=== PATIENT | female | born 1940 | race Caucasian/White ===

== ENCOUNTER → 2019-05-29 14:04 | Outpatient (CLI) | payer MEDICARE, OTHER, MEDICAID, SELFPAY ==
[2019-05-29 16:04] LABS: Anion Gap 8 (5-15); BUN 24 mg/dL (7-18); BUN/Creat Ratio 26.5 RATIO (10-20); Calcium,Total 9.3 mg/dL (8.5-10.1); Chloride 105 mmol/L (98-107); Creatinine, Serum 0.91 mg/dL (0.55-1.02); EST Glomerular Filtration Rate 64 mL/min (>60); Est Glom Filt Rate - Afr Amer 77 mL/min (>60); Glucose 159 mg/dL (74-106); Magnesium 1.9 mg/dL (1.6-2.6); Potassium 4.2 mmol/L (3.5-5.1); Sodium Level 143 mmol/L (136-145); T4 Total, Thyroxin 16.5 ug/dL (4.8-13.9)
== END ==
PROVIDERS: Family Provider Family Medicine; PCP Family Medicine; Referring Provider Internal Medicine Gastroenterology; Visit Provider Internal Medicine Gastroenterology
DX: K59.00 Constipation, unspecified (principal); R14.0 Abdominal distension (gaseous)
CPT/HCPCS: 36415; 80048; 83735; 84436; 84443

== ENCOUNTER 2022-11-13 18:29 | Emergency (ER) | payer MEDICARE, OTHER, MEDICAID, SELFPAY ==
[2022-11-13 18:34] VITALS: BP 157/85; PULSE 60; RESP 16; TEMP 36.8; O2SAT 97; BMI 33.8
--- NOTE | 2022-11-13 18:37 | EX.ED.DYSGE1 ---
HPI History of Present Illness Chief Complaint: Abd Pain Narrative Narrative: 82-year-old female here with abdominal pain. Patient states she has upper abdominal pain that she describes as feeling like bubbles. She notes this resolved in route. The patient further states she had 3 to 4 days of epigastric abdominal pain that was nonradiating. Pain is not ripping or tearing. She endorses no chest pain or shortness of breath associated. Denies any nausea or vomiting. States she has history abdominal surgeries. Notes no melena, hematochezia, constipation or diarrhea. Does note increased frequency of urination but denies any lower abdominal pain. [facility] Medical History (Updated 11/13/22 @ 21:[address] Abhi Edwards, ) Alzheimer's dementia Asthma CHF (congestive heart failure) Depressive disorder Diabetes Hyperlipemia Hypertension Hypothyroidism ADALBERTO (obstructive sleep apnea) Osteoarthritis Osteoporosis Home Medications alendronate 70 mg tablet (Fosamax) 70 mg PO QWEEK 11/13/22 [History Last Taken Unknown] carvedilol 12.5 mg tablet 12.5 mg PO QHS 11/13/22 [History Last Taken Unknown] carvedilol 6.25 mg tablet 6.25 mg PO DAILY 11/13/22 [History Last Taken Unknown] celecoxib 200 mg capsule (Celebrex) 200 mg PO BID 11/13/22 [History Last Taken Unknown] cyclosporine 0.05 % eye drops in a dropperette (Restasis) 1 drp EACH EYE Q12H 11/13/22 [History Last Taken Unknown] desloratadine 5 mg tablet 5 mg PO DAILY 11/13/22 [History Last Taken Unknown] docusate sodium 100 mg capsule (Colace) 100 mg PO QHS 11/13/22 [History Last Taken Unknown] donepezil 10 mg tablet 10 mg PO QHS 11/13/22 [History Last Taken Unknown] fluoxetine 20 mg capsule 20 mg PO DAILY 11/13/22 [History Last Taken Unknown] fluticasone propionate 50 mcg/actuation nasal spray,suspension 1 spray intranasal BID 11/13/22 [History Last Taken Unknown] levothyroxine 75 mcg tablet 75 mcg PO DAILY 11/13/22 [History Last Taken Unknown] melatonin 3 mg tablet 3 mg PO QHS 11/13/22 [History Last Taken Unknown] memantine 5 mg tablet 10 mg PO BID 11/13/22 [History Last Taken Unknown] pravastatin 10 mg tablet 10 mg PO QHS 11/13/22 [History Last Taken Unknown] Allergy/AdvReac Type Severity Reaction Status Date / Time No Known Allergies Allergy Verified 11/13/22 19:38 Surgical History (Updated 11/13/22 @ 18:43 by Tammy Mixon) History of hysterectomy Social History Smoking Status: Unknown if ever smoked ROS ROS ED ROS Narrative Constitutional: Denies fever HEENT: Denies sore throat Neck: Denies neck pain Cardiovascular: Denies chest pain, syncope Respiratory: Denies shortness of breath GI: Endorses abdominal pain : Denies changes in urinary habits Musculoskeletal: Denies muscle or joint pain Neurologic: Denies numbness weakness or loss of sensation Skin denies rash EXAM Physical Exam Narrative Exam Narrative: Nursing triage notes reviewed, Vital signs reviewed Constitutional: please see mdm HENT: MMM Eyes: Pupils equal round and reactive to light, Extraocular muscles intact Neck: No stridor, no JVD, full neck ROM Lungs: Clear to auscultation, No wheezing or rales. No increased work of breathing, no conversational dyspnea, no accessory muscle use, no nasal flaring. No respiratory distress noted Heart: Regular rate and rhythm, No murmurs, No rubs and No gallops, 2+ distal pulses (radial, femoral, posterior tibial) in all extremities Abdomen: Soft, there is no tenderness, rigidity, rebound or guarding, no obvious peritoneal signs, no palpable pulsatile abdominal masses, no auscultated abdominal bruit : No CVAT Extremities: No edema Neuro: No focal neurological deficits, cranial nerves II through XII intact, 5/5 strength in all extremities. Intact sensation to light touch in all extremities, 2+ reflexes bilateral patella dens. Normal gait. No ataxia. Skin: No rash or lesions noted Const Vital Signs: 11/13/22 18:34 11/13/22 20:00 Temperature 98.3 F Temperature Source Oral Pulse Rate 60 84 Respiratory Rate 16 17 Blood Pressure 157/85 H 184/93 H Blood Pressure Mean 109 123 Pulse Ox 97 95 Oxygen Delivery Method Room Air Room Air [facility] MDM Narrative Medical decision making narrative: Chief Complaint: Upper abdominal pain External records reviewed: No recent [place] imaging of the abdomen or pelvis noted in the chart I considered the following differential diagnosis: ACS, pancreatitis, hepato-biliary pathology, intra-abdominal pathology such as perforation or obstruction, gastritis, peptic ulcer disease. Patient was hemodynamically stable, afebrile, nontoxic-appearing. Abdominal exam was benign axis with acute surgical process however the patient advanced age report of epigastric abdominal pain I did obtain a CT scan rule out perforation or obstruction or other acute surgical process. Labs were remarkable for no evidence of leukocytosis, lactate was negative making mesenteric ischemia less likely. Patient no evidence of myocardial ischemia with no EKG changes or elevation in troponin. No evidence of UTI. There is no evidence of pedal biliary pathology. CT scan showed no evidence of acute intra-abdominal pathology. CT scan showed evidence of gastritis. Recommend the patient's start an [id number] PPI such as Protonix or Nexium. I gave her instructions to follow-up with GI doctor Factors affecting care: History of hypertension, hypothyroidism, hyperlipidemia Social determinants of health: Poor health literacy History obtained from others: The patient's son Shared decision making: I will have a discussion with the patient and or visitors regarding risk/benefits of further testing or admission. They will be made aware of of the risk/benefits inherent in this decision they will be given the opportunity to voice understanding. Consults: None History & Record Review Discussion w/independent historian: Family Additional record(s) reviewed:: Prior outpatient record Lab Data Attestation: I reviewed the patient's lab results. Lab results narrative: EKG with sinus bradycardia (prescribed by), normal axis, no STEMI, CBC with no leukocytosis, mild anemia, no thrombocytopenia BMP without evidence of significant electrolyte abnormalities, no anion gap, no acute kidney injury. Lactate is wnl indicating no end-organ hypoperfusion and/or hypoxia. LFTs show no evidence of hepatobiliary pathology. UA without evidence of infection Labs: Laboratory Results - last 24 hr 11/13/22 11/13/22 11/13/22 19:30 19:30 19:30 WBC 7.1 RBC 3.85 L Hgb 11.9 L Hct 38.0 MCV 98.7 MCH 30.9 MCHC 31.3 L RDW Std Deviation 45.0 H RDW Coeff of Eric 12.3 Plt Count 153 MPV 8.7 Immature Gran % (Auto) 0.400 Neut % (Auto) 54.9 Lymph % (Auto) 30.6 [place] % (Auto) 10.9 H Eos % (Auto) 2.5 Baso % (Auto) 0.7 Absolute Neuts (auto) 3.9 Absolute Lymphs (auto) 2.17 Nucleated RBC % 0 Sodium 140 Potassium 4.0 Chloride 108 H Carbon Dioxide 32.0 Anion Gap 0 L BUN 28 H Creatinine 0.96 Estim Creat Clear Calc 43.94 Est GFR (MDRD) Af Amer 72 Est GFR (MDRD) Non-Af 59 L BUN/Creatinine Ratio 29.3 H Glucose 124 H Lactic Acid 0.7 Calcium 9.3 Total Bilirubin 0.30 Direct Bilirubin 0.17 AST 17 ALT 15 Alkaline Phosphatase 63 Troponin I High Sens 8 Total Protein 6.5 Albumin 3.1 L Globulin 3.4 Lipase 16 Urine Color Urine Clarity Urine pH Ur Specific [place] Urine Protein Urine Glucose (UA) Urine Ketones Urine Occult Blood Urine Nitrite Urine Bilirubin Urine Urobilinogen Ur Leukocyte Esterase 11/13/22 19:40 WBC RBC Hgb Hct MCV MCH MCHC RDW Std Deviation RDW Coeff of Eric Plt Count MPV Immature Gran % (Auto) Neut % (Auto) Lymph % (Auto) [place] % (Auto) Eos % (Auto) Baso % (Auto) Absolute Neuts (auto) Absolute Lymphs (auto) Nucleated RBC % Sodium Potassium Chloride Carbon Dioxide Anion Gap BUN Creatinine Estim Creat Clear Calc Est GFR (MDRD) Af Amer Est GFR (MDRD) Non-Af BUN/Creatinine Ratio Glucose Lactic Acid Calcium Total Bilirubin Direct Bilirubin AST ALT Alkaline Phosphatase Troponin I High Sens Total Protein Albumin Globulin Lipase Urine Color Yellow Urine Clarity Sl. Cloudy Urine pH 6.0 Ur Specific [place] 1.020 Urine Protein Negative Urine Glucose (UA) Normal Urine Ketones Negative Urine Occult Blood 10 H Urine Nitrite Negative Urine Bilirubin Negative Urine Urobilinogen 4 H Ur Leukocyte Esterase 25 H Radiography Chest X-Ray - ED: Read by ED Physician Diagnostic Testing: Clinical Impression(s) from Imaging Studies Abdomen/Pelvis CT 11/13/22 19:15 IMPRESSION: (NOT LISTED IN ORDER OF SIGNIFICANCE) Gastritis. Other findings as above. Electronically Signed: Eliezer Banerjee MD at 20:51 EDT , Chest X-Ray 11/13/22 20:05 IMPRESSION: There are no acute findings. Electronically Signed: Eliezer Banerjee MD at 20:23 EDT , I have personally reviewed the patient's chest x-ray. Chest x-ray is unremarkable for pulmonary edema, pneumothorax, pneumonia or focal cardiopulmonary abnormality. Treatment and Re-Evaluation :: Repeat abdominal exam is benign per the patient appropriate discharge home Discharge Plan Triage Chief Complaint: Abd Pain ED Provider: Abhi Edwards Dx/Rx/DC Orders Clinical Impression: Abdominal pain, acute, epigastric Instructions: ED Gastritis (Adult) Prescriptions: No Action celecoxib [Celebrex] 200 mg Capsule 200 mg PO BID carvedilol 6.25 mg Tablet 6.25 mg PO DAILY Rx Instructions: must administer with a meal/food carvedilol 12.5 mg Tablet 12.5 mg PO QHS Rx Instructions: must administer with a meal/food donepezil 10 mg Tablet 10 mg PO QHS alendronate [Fosamax] 70 mg Tablet 70 mg PO QWEEK melatonin 3 mg Tablet 3 mg PO QHS levothyroxine 75 mcg Tablet 75 mcg PO DAILY pravastatin 10 mg Tablet 10 mg PO QHS desloratadine 5 mg Tablet 5 mg PO DAILY docusate sodium [Colace] 100 mg Capsule 100 mg PO QHS fluoxetine 20 mg Capsule 20 mg PO DAILY fluticasone propionate 50 mcg/actuation [place],Suspension 1 spray INTRANASAL BID Rx Instructions: administer into each nostril cyclosporine [Restasis] 0.05 % Dropperette 1 drp EACH EYE Q12H memantine 5 mg Tablet 10 mg PO BID Primary Care Provider: Francis Ventura Referrals: Friend,Jonathan, DO [Med Staff - Active Staff] - NOT,DEFINED [Non-Staff] - Activity Restrictions/Additional Instructions: Thank you for trusting us with your care today! Please take Tylenol (2 pills, 650 mg), every 6 hours as needed for pain and fever control. Please go to local pharmacy or drugstore and obtain Nexium or Protonix. These medicines control as per Dr. Laguerre and can help improve symptoms from gastritis. Please follow-up with a local GI doctor at the next available appointment. Please return to the emergency department if your symptoms change or worsen. Please follow with your primary care physician for further outpatient evaluation and management. Disposition Disposition: Home, Self Care
--- NOTE | 2022-11-13 19:15 | EKG12_ITS ---
Test Reason : ABD. PAIN Blood Pressure : / mmHG Vent. Rate : 052 BPM Atrial Rate : 052 BPM P-R Int : 288 ms QRS Dur : 086 ms QT Int : 430 ms P-R-T Axes : 082 053 067 degrees QTc Int : 399 ms Sinus bradycardia with 1st degree A-V block with Premature atrial complexes with Aberrant conduction Otherwise normal ECG Confirmed by DENNIS TORRES ([id number]), video effects editor KASIA FERNÁNDEZ ([id number]) on 11/16/2022 1:14:20 PM Referred By: IRENE Confirmed By:DENNIS TORRES
--- NOTE | 2022-11-13 19:15 | CT_ITS ---
STUDY: CT Abdomen And Pelvis W/ Contrast Injection 11/13/2022 8:48 PM REASON FOR EXAM: Female, 82 years old. Abdominal pain Epigastric abdominal pain Individualized dose optimization techniques were used for this CT. COMPARISON: None. TECHNIQUE: CT Abdomen And Pelvis W/ Contrast Injection IV 100mL [id number] FINDINGS: There are atherosclerotic calcifications of visualized coronary arteries. The visualized portions of the heart are within normal limits. Normal liver. Normal gallbladder and extrahepatic biliary system. There are multiple benign calcified granulomata of the spleen. Normal pancreas. Normal bilateral adrenal glands. No acute findings of the right kidney. No acute findings of the left kidney. Focal wall thickening of the antrum of stomach. This can suggest a gastritis. Normal small intestine. Stool throughout the colon. There is non-visualization of the appendix. There are calcifications of the abdominal aorta. This is consistent for atherosclerotic disease. There is NO abdominal aortic aneurysm. Vascular workup can be obtained based on clinical correlation. Normal inferior vena cava. Subcentimeter mesenteric lymph nodes. Normal urinary bladder. There is absence of the uterus consistent with a prior hysterectomy. Normal abdominal wall. There are diffuse degenerative changes of the visualized lumbar spine. There is bilateral neural foraminal stenosis at L4-5 and L5-S1. CT/Abdomen/Pelvis W IV Cont ONLY IMPRESSION: (NOT LISTED IN ORDER OF SIGNIFICANCE) Gastritis. Other findings as above. Electronically Signed: Eliezer Banerjee MD at 20:51 EDT ,
[2022-11-13 19:35] LABS: Absolute Lymphocyte Count 2.17 X10^3/uL (0.83-4.51); Absolute Neutrophil Count 3.9 X10^3/uL (2.0-7.7); Basophil# 0.05 X10^3/uL; Basophil% 0.7 % (0-1); Eosinophil# 0.18 X10^3/uL; Eosinophils% 2.5 % (0-5); Hemoglobin 11.9 g/dL (12.0-15.0); Lymphocyte # 2.17 X10^3/ul (0.83-4.51); Lymphocyte % 30.6 % (19-41); Mean Corp Hgb Conc 31.3 g/dL (32-36); Mean Corpuscular Hgb 30.9 pg (27.0-32.0); Mean Corpuscular Volume 98.7 fL (81-99); Mean Platelet Vol. 8.7 fl (6.2-12.0); Monocyte# 0.77 X10^3/uL; Monocyte% 10.9 % (0-10); NRBC Flagged by Analyzer 0 % (0-5); Neutrophil # 3.88 X10^3/uL (2.7-7.7); Neutrophil % 54.9 % (47-70); Platelet Count 153 K/mm3 (150-450); RBC Distribution Width CV 12.3 % (11.6-14.6); Red Blood Count 3.85 M/mm3 (4.2-5.4); White Blood Count 7.1 K/mm3 (4.4-11.0)
[2022-11-13] MEDS: 0.9% Normal Saline 1,000 ML 1000 ML IV (19:39)
[2022-11-13 19:54] LABS: AST(SGOT) 17 U/L (15-37); Alanine Aminotransfer ALT/SGPT 15 U/L (13-56); Albumin, Serum 3.1 g/dL (3.2-5.0); Alkaline Phosphatase 63 U/L (45-117); Anion Gap 0 (5-15); BUN 28 mg/dL (7-18); BUN/Creat Ratio 29.3 RATIO (10-20); Bilirubin, Direct 0.17 mg/dL (0.00-0.30); Calcium,Total 9.3 mg/dL (8.5-10.1); Chloride 108 mmol/L (98-107); Creatinine, Serum 0.96 mg/dL (0.55-1.02); EST Glomerular Filtration Rate 59 mL/min (>60); Est Glom Filt Rate - Afr Amer 72 mL/min (>60); Estimated Creatinine Clearance 43.94 ml/min; Globulin 3.4 g/dL (2.2-4.2); Glucose 124 mg/dL (74-106); Lipase 16 U/L (13-75); Protein, Total 6.5 g/dL (6.4-8.2); Sodium Level 140 mmol/L (136-145); Troponin-I HS 8 pg/mL (3.0-54.0)
[2022-11-13 19:58] LABS: Lactic Acid 0.7 mmol/L (0.4-1.9)
[2022-11-13 20:00] VITALS: BP 184/93; PULSE 84; RESP 17; O2SAT 95
[2022-11-13 20:02] LABS: Color, Urine Yellow (Yellow); Glucose, Dipstick Normal (Normal); Ketone-Dipstick Negative (Negative); Leukocyte Esterase-Dipstick 25 /ul (Negative); Nitrite-Dipstick Negative (Negative); Occult Blood-Urine 10 /ul (Negative); Protein-Dipstick Negative (Negative); Urine Bilirubin Dipstick Negative (Negative); Urine Clarity Sl. Cloudy (Clear); Urine Urobilinogen 4 mg/dl (Normal)
--- NOTE | 2022-11-13 20:05 | RAD_ITS ---
STUDY: XR Chest 1 View 11/13/2022 8:03 PM REASON FOR EXAM: Female, 82 years old. CHEST PAIN Epigastric abdominal pain/chest pain COMPARISON: None TECHNIQUE: XR Chest 1 View FINDINGS: There is no demonstrated pleural abnormality. There is an elevated right hemidiaphragm. Enlarged heart size. Normal mediastinum. Normal rosana. Prominent appearing increased interstitial lung markings. Normal visualized pulmonary arteries. There is atherosclerotic calcification of the aortic arch with tortuosity. There are diffuse degenerative changes of the visualized thoracic spine. There is degenerative osteoarthritis of the bilateral shoulders. There is no demonstrated abnormality of the visualized soft tissue structures of the upper abdomen. RAD/Chest 1 View (Portable) IMPRESSION: There are no acute findings. Electronically Signed: Eliezer Banerjee MD at 20:23 EDT ,
== END 2022-11-13 22:28 | disposition home or self-care (01) ==
PROVIDERS: Emergency Provider Emergency Medicine; PCP Family Medicine; Visit Provider Emergency Medicine
DX: R10.13 Epigastric pain (principal); G30.9 Alzheimer's disease, unspecified; F02.80 Dementia in other diseases classified elsewhere, unspecified severity, without behavioral disturbance, psychotic disturbance, mood disturbance, and anxiety; I11.0 Hypertensive heart disease with heart failure; I50.9 Heart failure, unspecified; E78.5 Hyperlipidemia, unspecified; M81.0 Age-related osteoporosis without current pathological fracture; Z79.899 Other long term (current) drug therapy; F32.A Depression, unspecified; E03.9 Hypothyroidism, unspecified
CPT/HCPCS: 71045; 74177; 80048; 80076; 81002; 83605; 83690; 84484; 85025; 93005; 96360; 99285; J7030; Q9967; A4216

== ENCOUNTER 2022-12-27 17:06 | Emergency (ER) | payer MEDICARE, OTHER, MEDICAID, SELFPAY ==
[2022-12-27 17:07] VITALS: BP 144/58; PULSE 56; RESP 19; TEMP 36.1; O2SAT 96; BMI 33.2
--- NOTE | 2022-12-27 17:35 | RAD_ITS ---
STUDY: X-RAY CHEST REASON FOR EXAM: Female, 82 years old. chest pain TECHNIQUE: Single AP portable view of the chest. COMPARISON: 11/13/2022. FINDINGS: The lungs are clear and expanded. There is no demonstrated pleural abnormality. Normal size heart. Normal mediastinum and rosana. Normal visualized pulmonary arteries. Normal visualized aortic arch and descending thoracic aorta. Normal visualized thoracic spine. Normal visualized ribs, clavicles, and shoulders. There is no demonstrated abnormality of the visualized soft tissue structures of the upper abdomen. RAD/Chest 1 View (Portable) IMPRESSION: Normal x-ray examination of the chest. Electronically Signed: Yogi Rocha MD at 18:02 EDT ,
[2022-12-27 17:48] LABS: Basophil# 0.06 X10^3/uL; Basophil% 1.1 % (0-1); Eosinophil# 0.21 X10^3/uL; Eosinophils% 3.7 % (0-5); Hematocrit 37.6 % (37-47); Hemoglobin 11.6 g/dL (12.0-15.0); Lymphocyte % 31.5 % (19-41); Mean Corp Hgb Conc 30.9 g/dL (32-36); Mean Corpuscular Hgb 30.4 pg (27.0-32.0); Mean Corpuscular Volume 98.4 fL (81-99); Mean Platelet Vol. 8.8 fl (6.2-12.0); Monocyte# 0.65 X10^3/uL; Monocyte% 11.4 % (0-10); NRBC Flagged by Analyzer 0 % (0-5); Neutrophil # 2.96 X10^3/uL (2.7-7.7); Neutrophil % 51.8 % (47-70); Platelet Count 162 K/mm3 (150-450); RBC Distribution Width CV 12.5 % (11.6-14.6); RBC Distribution Width SD 45.1 fl (35.1-43.9); Red Blood Count 3.82 M/mm3 (4.2-5.4); White Blood Count 5.7 K/mm3 (4.4-11.0)
[2022-12-27 18:01] VITALS: BP 170/64; PULSE 74; RESP 16; O2SAT 98
[2022-12-27 18:17] LABS: Anion Gap 4 (5-15); BUN 26 mg/dL (7-18); BUN/Creat Ratio 24.1 RATIO (10-20); Calcium,Total 9.1 mg/dL (8.5-10.1); Chloride 107 mmol/L (98-107); Creatinine, Serum 1.08 mg/dL (0.55-1.02); EST Glomerular Filtration Rate 52 mL/min (>60); Est Glom Filt Rate - Afr Amer 62 mL/min (>60); Estimated Creatinine Clearance 39.05 ml/min; Glucose 114 mg/dL (74-106); Potassium 4.6 mmol/L (3.5-5.1); Sodium Level 141 mmol/L (136-145); Troponin-I HS (w/2H Reflex) 8 pg/mL (3.0-54.0)
[2022-12-27] MEDS: 0.9% Normal Saline 1,000 ML 999 ML IV (18:54)
[2022-12-27 19:18] LABS: Bacteria 0 SEEN /hpf (None Seen); Mucous, Urine 0 SEEN /hpf (<or=2+); Red Blood Cells-Urine 0 SEEN /hpf (0-5); White Blood Cells 0 SEEN /hpf (0-5)
[2022-12-27 19:28] LABS: Color, Urine Yellow (Yellow); Glucose, Dipstick Normal (Normal); Ketone-Dipstick Negative (Negative); Leukocyte Esterase-Dipstick Negative /ul (Negative); Nitrite-Dipstick Negative (Negative); Occult Blood-Urine Negative /ul (Negative); Protein-Dipstick Negative (Negative); Urine Bilirubin Dipstick Negative (Negative); Urine Clarity Sl. Cloudy (Clear); Urine Urobilinogen Normal (Normal)
[2022-12-27 19:34] LABS: Amorphous Sediment 1+ PHOS; Squamous Epithelial Cells - UA 0-5 SEEN /hpf (5-10)
--- NOTE | 2022-12-27 20:22 | EX.ED.DYSGE1 ---
HPI History of Present Illness Chief Complaint: General Illness Narrative Narrative: 82-year-old female with dementia presenting at the [facility]est of the detention stating that she had an abnormal EKG. She is accompanied by her family. Her family does not know why they did the EKG. They were told that maybe her heart rate was slow. The patient does not have any complaints. Per family there is been no reports of fevers, chills, nausea, vomiting, diarrhea. No report of chest pain or shortness of breath. Apparently the patient EKG was then shown to be a junctional bradycardia and was sent to the emergency room for further evaluation. [facility] Medical History Alzheimer's dementia Asthma CHF (congestive heart failure) Depressive disorder Diabetes Hyperlipemia Hypertension Hypothyroidism ADALBERTO (obstructive sleep apnea) Osteoarthritis Osteoporosis Home Medications alendronate 70 mg tablet (Fosamax) 70 mg PO QWEEK 11/13/22 [History Last Taken Unknown] carvedilol 12.5 mg tablet 12.5 mg PO QHS 11/13/22 [History Last Taken Unknown] carvedilol 6.25 mg tablet 6.25 mg PO DAILY 11/13/22 [History Last Taken Unknown] celecoxib 200 mg capsule (Celebrex) 200 mg PO BID 11/13/22 [History Last Taken Unknown] cyclosporine 0.05 % eye drops in a dropperette (Restasis) 1 drp EACH EYE Q12H 11/13/22 [History Last Taken Unknown] desloratadine 5 mg tablet 5 mg PO DAILY 11/13/22 [History Last Taken Unknown] docusate sodium 100 mg capsule (Colace) 100 mg PO QHS 11/13/22 [History Last Taken Unknown] donepezil 10 mg tablet 10 mg PO QHS 11/13/22 [History Last Taken Unknown] esomeprazole magnesium 40 mg capsule,delayed release (Nexium) 40 mg PO DAILY 90 days #90 caps 11/13/22 [Rx Last Taken Unknown] fluoxetine 20 mg capsule 20 mg PO DAILY 11/13/22 [History Last Taken Unknown] fluticasone propionate 50 mcg/actuation nasal spray,suspension 1 spray intranasal BID 11/13/22 [History Last Taken Unknown] levothyroxine 75 mcg tablet 75 mcg PO DAILY 11/13/22 [History Last Taken Unknown] melatonin 3 mg tablet 3 mg PO QHS 11/13/22 [History Last Taken Unknown] memantine 5 mg tablet 10 mg PO BID 11/13/22 [History Last Taken Unknown] pravastatin 10 mg tablet 10 mg PO QHS 11/13/22 [History Last Taken Unknown] Allergy/AdvReac Type Severity Reaction Status Date / Time No Known Allergies Allergy Verified 12/27/22 17:10 Surgical History History of hysterectomy Social History Smoking Status: Unknown if ever smoked ROS ROS ED Review of Systems ROS Unobtainable: due to mental condition and due to mental status EXAM Physical Exam Const Vital Signs: 12/27/22 17:07 12/27/22 17:10 12/27/22 17:36 Temperature 96.9 F L Temperature Source Temporal Pulse Rate 56 L Respiratory Rate 19 H Respiratory Effort Normal Non-Labored Blood Pressure 144/58 H Blood Pressure Mean 86 Pulse Ox 96 Oxygen Delivery Method Room Air Room Air 12/27/22 18:01 Temperature Temperature Source Pulse Rate 74 Respiratory Rate 16 Respiratory Effort Blood Pressure 170/64 H Blood Pressure Mean 99 Pulse Ox 98 Oxygen Delivery Method Room Air Positive well nourished General Appearance ED: NAD; Negative for pallor HEENT Reports moist mucous membranes Eyes PERRL and EOMs intact bilaterally General Eye ED: Negative for pale conjunctiva or scleral icterus Resp normal respiratory effort Auscultation: Negative for rales, rhonchi or wheezes Cardio regular rate Rate: bradycardia Neuro CN's II-XII intact bilaterally Sensorium / Orientation: alert Motor Exam: general weakness Skin no rashes or lesions noted and no wounds General Skin Exam: Negative for jaundice or pallor MDM MDM MDM Narrative Medical decision making narrative: 82-year-old female who is a very poor informant, however she has no complaints. Vital signs are stable she has a bradycardia. I reviewed the previous EKG from the detention and it is a sinus bradycardia at a rate of 57 bpm without sign of ST elevation or depression on my interpretation. An EKG was performed here for comparison was also shows a sinus bradycardia with a first-degree AV block. No ST elevation or depression. Differential includes acute coronary syndrome, pneumonia, electrolyte abnormalities, dehydration, however the patient does not have any complaints. CBC to assess white blood cell count, hemoglobin, platelets, differential. BMP to assess renal function, electrolytes, glucose, anion gap. Urinalysis to assess for UTI. High-sensitivity troponin to assess for ischemia. Chest x-ray to rule out pneumonia. CBC shows a normal white blood cell count of 5.7, hemoglobin 11.6, platelets 162. Creatinine slightly elevated today at 1.06 and there is some slight prerenal azotemia so the patient was given a liter of normal saline. Electrolytes are unremarkable. High-sensitivity troponin is 8. Urinalysis negative for infection. Chest x-ray on my interpretation shows no acute cardiopulmonary process. The radiologist interprets this and agrees. Went over the results with the family I think the patient is stable for discharge home. The family did want to transport her and not have her wait for squad. Return precautions were given. Impression: 1. Sinus bradycardia 2. Weakness unknown cause Lab Data Labs: Laboratory Results - last 24 hr 12/27/22 12/27/22 12/27/22 17:34 17:34 19:05 WBC 5.7 RBC 3.82 L Hgb 11.6 L Hct 37.6 MCV 98.4 MCH 30.4 MCHC 30.9 L RDW Std Deviation 45.1 H RDW Coeff of Eric 12.5 Plt Count 162 MPV 8.8 Immature Gran % (Auto) 0.500 Neut % (Auto) 51.8 Lymph % (Auto) 31.5 [place] % (Auto) 11.4 H Eos % (Auto) 3.7 Baso % (Auto) 1.1 H Absolute Neuts (auto) 3.0 Absolute Lymphs (auto) 1.80 Nucleated RBC % 0 Sodium 141 Potassium 4.6 Chloride 107 Carbon Dioxide 30.0 Anion Gap 4 L BUN 26 H Creatinine 1.08 H Estim Creat Clear Calc 39.05 Est GFR (MDRD) Af Amer 62 Est GFR (MDRD) Non-Af 52 L BUN/Creatinine Ratio 24.1 H Glucose 114 H Calcium 9.1 Troponin I High Sens 8 Urine Color Yellow Urine Clarity Sl. Cloudy Urine pH 8.0 Ur Specific [place] 1.010 Urine Protein Negative Urine Glucose (UA) Normal Urine Ketones Negative Urine Occult Blood Negative Urine Nitrite Negative Urine Bilirubin Negative Urine Urobilinogen Normal Ur Leukocyte Esterase Negative Urine RBC 0 SEEN Urine WBC 0 SEEN Ur Squamous Epith Cells 0-5 SEEN Amorphous Sediment 1+ PHOS Urine Bacteria 0 SEEN Urine Mucus 0 SEEN Radiography Diagnostic Testing: Clinical Impression(s) from Imaging Studies Chest X-Ray 12/27/22 17:35 IMPRESSION: Normal x-ray examination of the chest. Electronically Signed: Yogi Rocha MD at 18:02 EDT , Discharge Plan Triage Chief Complaint: General Illness ED Provider: Edis Amador Dx/Rx/DC Orders Clinical Impression: Bradycardia, sinus Instructions: ED Bradycardia, ED Weakness (Uncertain Cause) Prescriptions: No Action celecoxib [Celebrex] 200 mg Capsule 200 mg PO BID carvedilol 6.25 mg Tablet 6.25 mg PO DAILY Rx Instructions: must administer with a meal/food carvedilol 12.5 mg Tablet 12.5 mg PO QHS Rx Instructions: must administer with a meal/food donepezil 10 mg Tablet 10 mg PO QHS alendronate [Fosamax] 70 mg Tablet 70 mg PO QWEEK melatonin 3 mg Tablet 3 mg PO QHS levothyroxine 75 mcg Tablet 75 mcg PO DAILY pravastatin 10 mg Tablet 10 mg PO QHS desloratadine 5 mg Tablet 5 mg PO DAILY docusate sodium [Colace] 100 mg Capsule 100 mg PO QHS fluoxetine 20 mg Capsule 20 mg PO DAILY fluticasone propionate 50 mcg/actuation [place],Suspension 1 spray INTRANASAL BID Rx Instructions: administer into each nostril cyclosporine [Restasis] 0.05 % Dropperette 1 drp EACH EYE Q12H memantine 5 mg Tablet 10 mg PO BID esomeprazole magnesium [Nexium] 40 mg capsule,delayed release(DR/EC) 40 mg PO DAILY 90 Days Qty: 90 0RF Primary Care Provider: Francis Ventura Referrals: Francis Ventura MD [Primary Care Provider] - Disposition Disposition: Home, Self Care
[2022-12-27 20:24] VITALS: BP 150/61; PULSE 64; RESP 16; O2SAT 96
== END 2022-12-27 20:38 | disposition home or self-care (01) ==
PROVIDERS: Emergency Provider Student in an Organized Health Care Education/Training Program; PCP Family Medicine; Visit Provider Student in an Organized Health Care Education/Training Program
DX: R00.1 Bradycardia, unspecified (principal); G30.9 Alzheimer's disease, unspecified; F02.80 Dementia in other diseases classified elsewhere, unspecified severity, without behavioral disturbance, psychotic disturbance, mood disturbance, and anxiety; I11.0 Hypertensive heart disease with heart failure; I50.9 Heart failure, unspecified; E11.9 Type 2 diabetes mellitus without complications; R53.1 Weakness; E78.5 Hyperlipidemia, unspecified; M81.0 Age-related osteoporosis without current pathological fracture; Z79.899 Other long term (current) drug therapy; F32.A Depression, unspecified; E03.9 Hypothyroidism, unspecified
CPT/HCPCS: 71045; 80048; 81001; 84484; 85025; 93005; 96360; 99285; J7030; A4216